=== PATIENT | female | born 1995 ===

== ENCOUNTER 2017-02-13 17:35 | Emergency (ER) | payer MEDICARE, MEDICAID ==
[2017-02-13] MEDS ORDERED: NO HOME MEDICATION XX (19:32)
[2017-02-13] MEDS ORDERED: ZOFRAN ODT4 MG PO (20:59)
== END 2017-02-13 21:16 ==
LOC: EDMED 17:35
DX: R11.2 Nausea with vomiting, unspecified (principal); R10.13 Epigastric pain